=== PATIENT | female | born 2000 | race Caucasian/White ===

== ENCOUNTER 2022-09-13 22:23 | Emergency (ER) | payer MEDICAID ==
[2022-09-13 23:08] LABS: ESTIMATED GFR 105 mL/min (>60); TROPONIN I HIGH SENSITIVITY < 4.0 pg/mL (<=60.3)
[2022-09-13] MEDS ORDERED: Ketorolac 30 MG/ML SDV IM ONE (23:14)
== END 2022-09-14 00:41 | disposition home or self-care (01) ==
LOC: JP.ED 22:23
DX: M79.10 Myalgia, unspecified site (principal); J10.1 Influenza due to other identified influenza virus with other respiratory manifestations; Z88.8 Allergy status to other drugs, medicaments and biological substances
CPT/HCPCS: 36415; 80053; 83880; 84484; 85025; 85379; 85610; 85730; 86140; 93005; 96372; 99284; J1885

== ENCOUNTER 2022-12-20 16:58 | Emergency (ER) | payer MEDICAID ==
[2022-12-20] MEDS ORDERED: fentaNYL 50 MCG/ML SDV IVPUSH ONE (17:59)
[2022-12-20] MEDS ORDERED: Sodium Chloride 0.9% 1,000 ML IV SCH (18:00)
[2022-12-20 18:06] LABS: ESTIMATED GFR 124 mL/min (>60)
[2022-12-20] MEDS ORDERED: Iopamidol 612 MG/ML 100 ML Bottle IV PRN (18:14)
[2022-12-20] MEDS ORDERED: Sodium Chloride 0.9% 50 ML IV SCH (18:15)
[2022-12-20] MEDS ORDERED: Acetaminophen/HYDROcodone 325-5 MG Tab PO ONE (20:30)
== END 2022-12-20 20:50 | disposition home or self-care (01) ==
LOC: JP.ED 16:58
DX: G89.18 Other acute postprocedural pain (principal); R10.11 Right upper quadrant pain; Z86.16 Personal history of COVID-19
CPT/HCPCS: 36415; 74177; 80053; 81001; 83605; 85025; 86140; 87070; 96361; 96374; 99283; 99284; A9270; J3010; J3490; J7030; Q9967

== ENCOUNTER 2023-12-01 03:49 | Emergency (ER) | payer MEDICAID ==
[2023-12-01] MEDS: Acetaminophen 500 MG Tab PO ONE (04:20)
== END 2023-12-01 04:27 | disposition home or self-care (01) ==
LOC: JP.ED 03:49
DX: S91.332A Puncture wound without foreign body, left foot, initial encounter (principal); Z86.16 Personal history of COVID-19; Z90.49 Acquired absence of other specified parts of digestive tract; Z88.2 Allergy status to sulfonamides; Z88.6 Allergy status to analgesic agent; W27.3XXA Contact with needle (sewing), initial encounter
CPT/HCPCS: 28190; 99283; A9270

== ENCOUNTER 2024-09-20 15:56 | Emergency (ER) | payer OTHER ==
[2024-09-20] MEDS: Bacitracin Oint 1 GM U/D Packet TOP ONE ×2 (18:30→18:32)
== END 2024-09-20 19:49 | disposition home or self-care (01) ==
LOC: JP.ED 15:56
DX: R22.33 Localized swelling, mass and lump, upper limb, bilateral (principal); Z88.2 Allergy status to sulfonamides; Z88.8 Allergy status to other drugs, medicaments and biological substances
CPT/HCPCS: 99283